=== PATIENT | male | born 1990 | race Caucasian/White ===

== ENCOUNTER → 2021-03-28 | Outpatient (CLI) | payer OTHER ==
[2021-03-28 10:26] LABS: HEMOGLOBIN 14.3 gm/dl (14.0-17.5); RED BLOOD COUNT 5.2 M/UL (4.20-5.50); WHITE BLOOD COUNT 7.1 K/UL (4.5-11.0)
[2021-03-28 11:26] LABS: BUN/CREATININE RATIO 16 (0-10)
== END ==
LOC: LAB 09:39
PROVIDERS: Physician Assistant
DX: G62.9 Polyneuropathy, unspecified (principal); K76.0 Fatty (change of) liver, not elsewhere classified; M10.9 Gout, unspecified; E78.5 Hyperlipidemia, unspecified
CPT/HCPCS: 36415; 80053; 80061; 82607; 84443; 84550; 85025

== ENCOUNTER → 2021-12-04 | Outpatient (CLI) | payer OTHER | LOC: KOH-I 11-29 08:30 | DX: K76.0 Fatty (change of) liver, not elsewhere classified (principal); R16.0 Hepatomegaly, not elsewhere classified; K82.0 Obstruction of gallbladder | CPT/HCPCS: 76705 ==